=== PATIENT | female | born 1995 | race Caucasian/White ===

== ENCOUNTER 2019-11-20 16:26 | Emergency (ER) | payer OTHER ==
--- NOTE | 2019-11-20 16:49 | EDM.PDOC ---
ED HPI GENERAL MEDICAL PROBLEM - General Chief Complaint: Back Pain or Injury Stated Complaint: BACK PAIN Time Seen by Provider: 11/20/19 16:48 Source of Information: Reports: Patient History Limitations: Reports: No Limitations - History of Present Illness INITIAL COMMENTS - FREE TEXT/NARRATIVE: HISTORY AND PHYSICAL: History of present illness: Patient is a 24-year-old female who presents to the emergency department with complaints of right sided muscular back pain that is progressively gotten worse over the past 5 days. She states she was helping move and was lifting heavy objects throughout the day on Thursday. When she bent over to package pick up a bed set she had sharp pain to the right lumbar region. She states initially it felt like muscle spasms and improved somewhat with gentle heat, Tylenol and ibuprofen. She has been trying to stay mobile but states it has been painful. Pain radiates into the right glutes and is fairly constant. Patient denies any fever, chills, headache, change in vision, syncope or near syncope. Denies any chest pain, back pain, shortness of breath or cough. Denies any abdominal pain, nausea, vomiting, diarrhea, constipation or dysuria. Adamantly denies any chance of . Has not noted any blood in urine or stool. Patient has been eating and drinking appropriately. Review of systems: As per history of present illness and below otherwise all systems reviewed and negative. Past medical history: As per history of present illness and as reviewed below otherwise noncontributory. Surgical history: As per history of present illness and as reviewed below otherwise noncontributory. Social history: See social history for further information Family history: As per history of present illness and as reviewed below otherwise noncontributory. Physical exam: General: Well-developed and well-nourished 24-year-old female. Alert and oriented. Nontoxic-appearing and in no acute distress. HEENT: Atraumatic, normocephalic, pupils equal and reactive bilaterally, negative for conjunctival pallor or scleral icterus, mucous membranes moist, TMs normal bilaterally, throat clear, neck supple, nontender, trachea midline. No drooling or trismus noted. No meningeal signs. No hot potato voice noted. Lungs: Clear to auscultation, breath sounds equal bilaterally, chest nontender. Heart: S1S2, regular rate and rhythm without overt murmur Abdomen: Soft, nondistended, nontender. Negative for masses or hepatosplenomegaly. Negative for costovertebral tenderness. Pelvis: Stable nontender. C-spine/Back: No pinpoint vertebral tenderness upon palpation. No crepitus, step -offs or obvious deformities. Patient does have muscular back pain to the right low lumbar region radiates into her right glute. Patient is ambulatory into the emergency room without difficulty or deficit. Able to rock back on heels and walk on toes. Brisk reflexes to bilateral lower extremities. Denies any urinary or fecal incontinence. Denies any numbness, tingling or saddle paresthesia. Skin: Intact, warm, dry. No lesions or rashes noted. Extremities: Atraumatic, moves all extremities per self without difficulty or deficits, negative for cords or calf pain. Neurovascular unremarkable. Neuro: Awake, alert, oriented. Cranial nerves II through XII unremarkable. Cerebellum unremarkable. Motor and sensory unremarkable throughout. Exam nonfocal. Notes: Patient is adamant that she is not and declines wanting a urine test for medication management. We also discussed imaging at this time. She denies any fall or trauma of her back and does not have any neurological symptoms. My assessment shows that she has muscular right lumbar back pain with sciatica into the right glutes. Will give IM Dilaudid here as she appears uncomfortable; has a ride to home. Pain has improved. Remains neurologically intact. We discussed signs and symptoms that would prompt her to return to the emergency room. Patient and supportive care measures were reviewed and discussed. Voices understanding and is agreeable to plan of care. Denies any further questions or concerns at this time. Diagnostics: Declines Therapeutics: Dilaudid IM Prescription: Flexeril and Tramadol Impression: Lumbago with sciatica Plan: 1. The medication you received today does cause drowsiness, so do not drive for the remaining day 2. When resting please lay on a flat firm surface. Limit your immobility to prevent muscle stiffness. Get up to ambulate/move around/gentle stretching multiple times throughout the day. May alternate heat and ice to the painful areas 3. Tylenol and Ibuprofen as needed for back pain. Take your prescriptions as directed. DO NOT TAKE THEM AT THE SAME TIME, as they both may cause drowsiness. Do not take it will driving her needing to be functioning outside of the house. 4. Please follow-up with your primary care provider as we discussed. Return to the ED as needed and as discussed. Definitive disposition and diagnosis as appropriate pending reevaluation and review of above. Right Lower Back Pain Score (Numeric/FACES): 10 - Related Data Allergies Allergy/AdvReac Type Severity Reaction Status Date / Time No Known Allergies Allergy Verified 11/20/19 16:47 Home Meds: Home Meds . [No Known Home Meds] 11/20/19 [History] Social & Family History - Tobacco Use Smoking Status *Q: Never Smoker Second Hand Smoke Exposure: No - Caffeine Use Caffeine Use: Reports: None - Recreational Drug Use Recreational Drug Use: No ED ROS GENERAL - Review of Systems Review Of Systems: Comprehensive ROS is negative, except as noted in HPI. ED EXAM,LOWER BACK PAIN/INJURY - Physical Exam Exam: See Below (See dictation) Course - Vital Signs Last Recorded V/S: Last Vital Signs Temp 97.6 F 11/20/19 16:43 Pulse 58 L 11/20/19 16:43 Resp 18 11/20/19 16:43 BP 117/70 11/20/19 16:43 Pulse Ox 97 11/20/19 16:43 - Orders/Labs/Meds Meds: Medications Discontinued Medications Generic Name Dose Route Start Last Admin Trade Name Freq PRN Reason Stop Dose Admin Hydromorphone HCl 1 mg 11/20/19 16:54 Dilaudid IM 11/20/19 16:55 ONETIME ONE Departure - Departure Time of Disposition: 17:21 Disposition: Home, Self-Care 01 Clinical Impression: Lumbago with sciatica, right side Qualifiers: Chronicity: acute Back pain laterality: right Qualified Code(s): M54.41 - Lumbago with sciatica, right side - Discharge Information Instructions: Sciatica, [id number] Referrals: PCP,None [Primary Care Provider] - Forms: ED Department Discharge Additional Instructions: The following information is given to patients seen in the emergency department who are being discharged to home. This information is to outline your options for follow-up care. We provide all patients seen in our emergency department with a follow-up referral. The need for follow-up, as well as the timing and circumstances, are variable depending upon the specifics of your emergency department visit. If you don't have a primary care physician on staff, we will provide you with a referral. We always advise you to contact your personal physician following an emergency department visit to inform them of the circumstance of the visit and for follow-up with them and/or the need for any referrals to a consulting specialist. The emergency department will also refer you to a specialist when appropriate. This referral assures that you have the opportunity for follow-up care with a specialist. All of these measure are taken in an effort to provide you with optimal care, which includes your follow-up. Under all circumstances we always encourage you to contact your private physician who remains a resource for coordinating your care. When calling for follow-up care, please make the office aware that this follow-up is from your recent emergency room visit. If for any reason you are refused follow-up, please contact the [facility] Emergency Department at and asked to speak to the emergency department charge nurse. [facility] [address] [place] [id number] [facility] [address] [place] [id number] 1. The medication you received today does cause drowsiness, so do not drive for the remaining day 2. When resting please lay on a flat firm surface. Limit your immobility to prevent muscle stiffness. Get up to ambulate/move around/gentle stretching multiple times throughout the day. May alternate heat and ice to the painful areas 3. Tylenol and Ibuprofen as needed for back pain. Take your prescriptions as directed. DO NOT TAKE THEM AT THE SAME TIME, as they both may cause drowsiness. Do not take it will driving her needing to be functioning outside of the house. 4. Please follow-up with your primary care provider as we discussed. Return to the ED as needed and as discussed. Sepsis Event Note - Evaluation Sepsis Screening Result: No Definite Risk - Focused Exam Vital Signs: Vital Signs Temp Pulse Resp BP Pulse Ox 11/20/19 16:43 97.6 F 58 L 18 117/70 97 Date Exam was Performed: 11/20/19 Time Exam was Performed: 17:18
[2019-11-20] MEDS ORDERED: HYDROmorphone 1 MG/ML Syringe IM ONE (16:54)
== END 2019-11-20 18:06 | disposition home or self-care (01) ==
LOC: MW.ED 16:26
DX: M54.41 Lumbago with sciatica, right side (principal)
CPT/HCPCS: 96372; 99283; J1170

== ENCOUNTER 2020-05-12 12:36 | Emergency (ER) | payer MEDICAID, OTHER ==
[2020-05-12] MEDS ORDERED: Ketorolac 15 MG/ML SDV IM ONE (13:58)
--- NOTE | 2020-05-12 14:31 | CR ---
INDICATION: Injury. Left ankle pain. COMPARISON: None. TECHNIQUE: Left ankle 3 views. FINDINGS: No acute fracture. Alignment is within normal limits. Joint spaces are maintained. Talar dome and tibial plafond are intact. Mild lateral soft tissue swelling. IMPRESSION: Soft tissue swelling. Otherwise no acute osseous abnormality. Dictated by Popeye Wiseman MD @ May 12 2020 2:27PM Signed by Dr. Popeye Wiseman @ May 12 2020 2:29PM
--- NOTE | 2020-05-12 14:41 | EDM.PDOC ---
ED HPI GENERAL MEDICAL PROBLEM - General Chief Complaint: Lower Extremity Injury/Pain Stated Complaint: Left ANKLE INJURY Time Seen by Provider: 05/12/20 13:24 - History of Present Illness INITIAL COMMENTS - FREE TEXT/NARRATIVE: CHIEF COMPLAINT(S): Left ankle injury HISTORY OF PRESENT ILLNESS: This is a 24-year-old woman without any significant past medical history who comes to the emergency department with a chief complaint of left ankle injury. The patient states that she was running out her front door and injured her left ankle. She states that she was on her way to work. She states that she is experiencing pain on the right side of her ankle. She was able to bear weight. She denies any numbness, tingling, weakness. She rates her pain as 5 out of 10. She denies any other injury. REVIEW OF SYSTEMS: Constitutional: Denies fever, chills. Eyes: Denies eye pain Ears, Nose, Mouth, & Throat: Denies earache Cardiovascular: Denies chest pain Respiratory: Denies shortness of breath Gastrointestinal: Denies Nausea, vomiting, diarrhea, hematochezia. Genitourinary: Denies hematuria MSK positive for left ankle pain Neurological: Denies blurred vision, numbness, tingling, weakness Psychiatric: Denies depression PAST MEDICAL HISTORY: As per history of present illness and as reviewed below otherwise noncontributory. SURGICAL HISTORY: As per history of present illness and as reviewed below otherwise noncontributory. LMP: 1 month ago SOCIAL HISTORY: As per history of present illness and as reviewed below otherwise noncontributory. FAMILY HISTORY: As per history of present illness and as reviewed below otherwise noncontributory. EXAMINATION OF ORGAN SYSTEMS/BODY AREAS: Constitutional: Blood pressure is 138/85, heart rate 62, respiratory rate 17 with an oxygen saturation 98% on room air. Temperature 36.2 General: Overall well-appearing woman who is in no acute distress Psychiatric: Appropriate mood and affect. Eyes: No scleral icterus or conjunctival erythema ENMT: Moist mucous membranes. No pharyngeal erythema Cardiovascular: Regular, rate, and rhythm. No gallops, murmurs, or rubs. Bilateral upper and lower extremity pulses are symmetric and intact. Respiratory: Lungs clear to auscultation bilaterally. No wheezes, rales, or rhonchi. Gastrointestinal: Soft, non-tender, non-distended. Normoactive bowel sounds Genitourinary: No suprapubic tenderness Musculoskeletal: Normal range of motion. There is swelling of the left ankle without any deformity or bruising. There is tenderness to palpation along the posterior lateral malleolus. No base of the fifth metatarsal or medial malleolar pain. Skin: No lesions or abrasions. Neurological: Alert, GCS 15 distal sensation is intact MEDICAL DECISION MAKING AND COURSE IN THE ED WITH INTERPRETATION/REVIEW OF DIAGNOSTIC STUDIES: This is a 24-year-old woman without any significant past medical history who comes to the emergency department with the left ankle injury with pain on the lateral malleolus. At this time we will obtain an ankle x-ray to evaluate for fracture. We will provide the patient with Toradol IM for pain relief. There is no laceration therefore no tetanus will be administered. I do not believe any labs or imaging are indicated. The radiological images were viewed by myself along with reading the report from the radiologist. Left ankle x-ray reveals soft tissue swelling without any evidence of acute fracture. After imaging I did discuss the results with the patient. I discussed with her that I would like to place an Vazquez bandage around the ankle. I instructed her to use Tylenol and Motrin [id number] for pain relief. I discussed the use of ice 20 minutes 4 times a day and that she needs to follow-up with orthopedics within 1 week. She was amenable to discharge at this time and had no further questions. DISPOSITION: The patient was discharged home in stable condition. The patient will follow up with Ortho in 1 week CONDITION: Fair PROCEDURES: None FINAL IMPRESSION(S)/DIAGNOSES: 1. Acute left ankle sprain Mejia Prescott M.D. L ankle Pain Score (Numeric/FACES): 5 - Related Data Allergies Allergy/AdvReac Type Severity Reaction Status Date / Time No Known Allergies Allergy Verified 05/12/20 14:00 Home Meds: Home Meds . [No Known Home Meds] 11/20/19 [History] Past Medical History - Past Health History Medical/Surgical History: Denies Medical/Surgical History HEENT History: Reports: None Cardiovascular History: Reports: None Respiratory History: Reports: None Gastrointestinal History: Reports: None Genitourinary History: Reports: None RN CARDIAC CATH History: Reports: None Musculoskeletal History: Reports: None Neurological History: Reports: None Psychiatric History: Reports: None Endocrine/Metabolic History: Reports: None Hematologic History: Reports: None Immunologic History: Reports: None Oncologic (Cancer) History: Reports: None Dermatologic History: Reports: None - Infectious Disease History Infectious Disease History: Reports: None - Past Surgical History Head Surgeries/Procedures: Reports: None Female Surgical History: Reports: None Social & Family History - Family History Family Medical History: No Pertinent Family History - Tobacco Use Tobacco Use Status *Q: Never Tobacco User Second Hand Smoke Exposure: No - Caffeine Use Caffeine Use: Reports: None - Recreational Drug Use Recreational Drug Use: No Review of Systems - Review of Systems Review Of Systems: See Below ED EXAM, GENERAL - Physical Exam Exam: See Below Course - Vital Signs Last Recorded V/S: Last Vital Signs Temp 36.2 C 05/12/20 13:55 Pulse 60 05/12/20 15:05 Resp 17 05/12/20 13:55 BP 123/65 05/12/20 15:05 Pulse Ox 96 05/12/20 15:05 - Orders/Labs/Meds Meds: Medications Discontinued Medications Generic Name Dose Route Start Last Admin Trade Name Lisa PRN Reason Stop Dose Admin Ketorolac Tromethamine 15 mg 05/12/20 13:58 05/12/20 14:11 Toradol IM 05/12/20 13:59 15 mg ONETIME ONE Administration Departure - Departure Time of Disposition: 14:39 Disposition: Home, Self-Care 01 Condition: Fair Clinical Impression: Ankle sprain Qualifiers: Encounter type: initial encounter Involved ligament of ankle: unspecified ligament Laterality: left Qualified Code(s): S93.402A - Sprain of unspecified ligament of left ankle, initial encounter - Discharge Information *PRESCRIPTION DRUG MONITORING PROGRAM REVIEWED*: No *COPY OF PRESCRIPTION DRUG MONITORING REPORT IN PATIENT MARK: No Instructions: How to Use Cold Therapy, [id number], Ankle Sprain, Ankle Sprain, [id number] Referrals: PCP,None [Primary Care Provider] - Forms: ED Department Discharge Additional Instructions: The patient is informed of any results of their evaluation and diagnostic workup and all questions are answered. They are given discharge instructions and return precautions. The patient is stable for discharge. The patient states they understand and agree with the plan and that they will return if their symptoms get worse or if they have any new concerns. The following information is given to patients seen in the emergency department who are being discharged to home. This information is to outline your options for follow-up care. We provide all patients seen in our emergency department with a follow-up referral. The need for follow-up, as well as the timing and circumstances, are variable depending upon the specifics of your emergency department visit. If you don't have a primary care physician on staff, we will provide you with a referral. We always advise you to contact your personal physician following an emergency department visit to inform them of the circumstance of the visit and for follow-up with them and/or the need for any referrals to a consulting specialist. The emergency department will also refer you to a specialist when appropriate. This referral assures that you have the opportunity for follow-up care with a s pecialist. All of these measure are taken in an effort to provide you with optimal care, which includes your follow-up. Under all circumstances we always encourage you to contact your private physici an who remains a resource for coordinating your care. When calling for follow-up care, please make the office aware that this follow-up is from your recent emergency room visit. If for any reason you are refused follow-up, please contact the [facility] Emergency Department at and asked to speak to the emergency department charge nurse. Your evaluated on an emergent basis today. Your imaging did not show any fracture. I suspect you have an ankle sprain. Please continue to use the Vazquez bandage for compression of the left ankle. Please use ibuprofen as prescribed for the next 48 hours and then use as needed after that. Please ice the left ankle 20 minutes 4 times a day and keep the leg elevated. If you have any worsening symptoms please return to the emergency department. Please follow-up with orthopedics within 1 week [facility] [address] [place] [address], [address] [place] [address] Sepsis Event Note (ED) - Evaluation Sepsis Screening Result: No Definite Risk - Focused Exam Vital Signs: Vital Signs Temp Pulse Resp BP Pulse Ox 05/12/20 15:05 60 123/65 96 05/12/20 13:55 36.2 C 62 17 138/85 98
== END 2020-05-12 15:05 | disposition home or self-care (01) ==
LOC: MW.ED 12:36
DX: S93.402A Sprain of unspecified ligament of left ankle, initial encounter (principal); W22.8XXA Striking against or struck by other objects, initial encounter; Y93.02 Activity, running
CPT/HCPCS: 73610; 96372; 99283; J1885

== ENCOUNTER 2020-11-02 20:33 | Emergency (ER) | payer MEDICAID ==
[2020-11-02] MEDS ORDERED: Dexamethasone 10 MG/ML SDV IM ONE (20:51)
[2020-11-02] MEDS ORDERED: Ketorolac 30 MG/ML SDV IM ONE (20:52)
[2020-11-02] MEDS ORDERED: Acetaminophen 500 MG Tab PO ONE (20:53)
--- NOTE | 2020-11-02 20:58 | EDM.PDOC ---
ED HPI GENERAL MEDICAL PROBLEM - General Chief Complaint: Back Pain or Injury Stated Complaint: BACK PAIN Time Seen by Provider: 11/02/20 20:35 Source of Information: Reports: Patient History Limitations: Reports: No Limitations - History of Present Illness INITIAL COMMENTS - FREE TEXT/NARRATIVE: 25-year-old female past medical history sciatica presents for right lower back pain radiating down her leg. Patient states this feels like prior episodes of sciatica. She notes that she does a lot of bending, lifting at work. She is noticed pain worsening over the last couple of days. She struggles with chronic back pain but states this is worse. She denies any lower extremity muscle weakness, urinary incontinence or retention, saddle anesthesia. She has not had any advanced imaging of the back. She denies trauma. She denies urinary symptoms. Lower Back Pain Score (Numeric/FACES): 6 - Related Data Allergies Allergy/AdvReac Type Severity Reaction Status Date / Time No Known Allergies Allergy Verified 11/02/20 20:37 Home Meds: Home Meds Cyclobenzaprine [Flexeril] 10 mg PO TID #20 tab 11/02/20 [Rx] Ibuprofen [Motrin] 600 mg PO Q6H PRN #29 tab 11/02/20 [Rx] diazePAM [Valium] 5 mg PO QPM PRN #3 tablet 11/02/20 [Rx] Past Medical History - Past Health History Medical/Surgical History: Denies Medical/Surgical History HEENT History: Reports: None Cardiovascular History: Reports: None Respiratory History: Reports: None Gastrointestinal History: Reports: None Genitourinary History: Reports: None LOG HANDLER History: Reports: None Musculoskeletal History: Reports: None Neurological History: Reports: None Psychiatric History: Reports: None Endocrine/Metabolic History: Reports: None Hematologic History: Reports: None Immunologic History: Reports: None Oncologic (Cancer) History: Reports: None Dermatologic History: Reports: None - Infectious Disease History Infectious Disease History: Reports: None - Past Surgical History Head Surgeries/Procedures: Reports: None Female Surgical History: Reports: None Social & Family History - Family History Family Medical History: No Pertinent Family History - Tobacco Use Tobacco Use Status *Q: Never Tobacco User - Caffeine Use Caffeine Use: Reports: None - Recreational Drug Use Recreational Drug Use: No ED ROS GENERAL - Review of Systems Review Of Systems: Comprehensive ROS is negative, except as noted in HPI. ED EXAM, GENERAL - Physical Exam Exam: See Below Exam Limited By: No Limitations General Appearance: Alert, WD/WN, No Apparent Distress Throat/Mouth: Normal Voice, No Airway Compromise Head: Atraumatic, Normocephalic Neck: Normal Inspection Respiratory/Chest: No Respiratory Distress, Lungs Clear, Normal Breath Sounds, No Accessory Muscle Use Cardiovascular: Normal Peripheral Pulses, Regular Rate, Rhythm Back Exam: Normal Inspection, Paraspinal Tenderness. No: Vertebral Tenderness Extremities: Normal Inspection Neurological: Alert, Normal Gait Psychiatric: Normal Affect, Normal Mood Skin Exam: Warm, Dry, Intact, Normal Color Course - Vital Signs Last Recorded V/S: Last Vital Signs Temp 97.4 F 11/02/20 20:38 Pulse 66 11/02/20 20:38 Resp 18 11/02/20 20:38 BP 128/69 11/02/20 20:38 Pulse Ox 98 11/02/20 20:38 - Orders/Labs/Meds Meds: Medications Discontinued Medications Generic Name Dose Route Start Last Admin Trade Name Raulq PRN Reason Stop Dose Admin Acetaminophen 1,000 mg 11/02/20 20:53 Acetaminophen 500 Mg Tab PO 11/02/20 20:54 ONETIME ONE Dexamethasone 10 mg 11/02/20 20:51 Dexamethasone 10 Mg/Ml Sdv IM 11/02/20 20:52 ONETIME ONE Ketorolac Tromethamine 30 mg 11/02/20 20:52 Ketorolac 30 Mg/Ml Sdv IM 11/02/20 20:53 ONETIME ONE - Re-Assessments/Exams Free Text/Narrative Re-Assessment/Exam: 11/02/20 21:00 We will treat symptomatically with Toradol, Tylenol, Decadron. Will send muscle relaxant and Motrin to patient's pharmacy. Had a long discussion with patient regarding return precautions for red flag signs or symptoms of back pain. Discussed follow-up with primary care physician for advanced imaging of the back for more definitive diagnosis. Departure - Departure Time of Disposition: 20:56 Disposition: Home, Self-Care 01 Condition: Good Clinical Impression: Sciatica Qualifiers: Laterality: right Qualified Code(s): M54.31 - Sciatica, right side - Discharge Information Prescriptions: Cyclobenzaprine [Flexeril] 10 mg PO TID #20 tab Ibuprofen [Motrin] 600 mg PO Q6H PRN #29 tab PRN Reason: Pain diazePAM [Valium] 5 mg PO QPM PRN #3 tablet PRN Reason: Muscle Spasm Instructions: Sciatica Referrals: PCP,None [Primary Care Provider] - Forms: ED Department Discharge Additional Instructions: Your symptoms are most consistent with sciatica. You should follow-up with your primary care physician and consider getting MRI imaging of the back for more definitive diagnosis. We gave you 3 different medications in the emergency department; Toradol which is like a stronger version of Motrin, Tylenol which helps the Toradol to work better, and Decadron which is a long-acting steroid to help with inflammation over the next several days. I have sent 3 medications your pharmacy. One of them is high-dose Motrin which he can take every 6 hours for pain as needed. The other one is called Flexeril which is a muscle relaxant. The other medication is called Valium which is a very strong muscle relaxant. I only sent to 3 of these, you can take them at night to help you sleep for the next few days, do not take this with Flexeril, do not take this with alcohol, do not drive on this medication. The following information is given to patients seen in the emergency department who are being discharged to home. This information is to outline your options for follow-up care. We provide all patients seen in our emergency department with a follow-up referral. The need for follow-up, as well as the timing and circumstances, are variable depending upon the specifics of your emergency department visit. If you don't have a primary care physician on staff, we will provide you with a referral. We always advise you to contact your personal physician following an emergency department visit to inform them of the circumstance of the visit and for follow-up with them and/or the need for any referrals to a consulting specialist. The emergency department will also refer you to a specialist when appropriate. This referral assures that you have the opportunity for follow-up care with a specialist. All of these measure are taken in an effort to provide you with optimal care, which includes your follow-up. Under all circumstances we always encourage you to contact your private physician who remains a resource for coordinating your care. When calling for follow-up care, please make the office aware that this follow-up is from your recent emergency room visit. If for any reason you are refused follow-up, please contact the [facility] Emergency Department at and asked to speak to the emergency department charge nurse. Please follow up with your primary care physician. If you do not have a primary care physician, see below: [facility] [address] [place] [id number] [facility] [address] [place] [id number] [facility] [address] [place] [id number] Sepsis Event Note (ED) - Evaluation Sepsis Screening Result: No Definite Risk - Focused Exam Vital Signs: Vital Signs Temp Pulse Resp BP Pulse Ox 11/02/20 20:38 97.4 F 66 18 128/69 98
== END 2020-11-02 21:15 | disposition home or self-care (01) ==
LOC: MW.ED 20:33
DX: M54.41 Lumbago with sciatica, right side (principal)
CPT/HCPCS: 96372; 99283; A9270; J1100; J1885